=== PATIENT | male | born 1940 | race Caucasian/White ===

== ENCOUNTER → 2019-11-28 | Day surgery (SDC) | payer MEDICARE ==
[2019-11-26 14:34] LABS: BASOPHILS % 0.4 % (0.0-1.0); EOSINOPHILS % 0.6 % (0.0-6.0); HEMATOCRIT 43.7 % (38.2-49.6); HEMOGLOBIN 14.2 g/dL (14.0-18.0); LYMPHOCYTES # (AUTO) 0.9 (1.0-3.2); LYMPHOCYTES % 17.7 % (18.0-39.1); MEAN CORPUSCULAR HEMOGLOBIN 28.8 pg (28-32); MEAN CORPUSCULAR HGB CONC 32.5 g/dL (31-35); MEAN CORPUSCULAR VOLUME 88.6 fL (81-99); MONOCYTES # (AUTO) 0.2 (0.2-0.8); MONOCYTES % 3.5 % (4.4-11.3); NEUTROPHILS # (AUTO) 3.9 (2.1-6.9); NEUTROPHILS % 77.4 % (38.7-80.0); PLATELET COUNT 160 x10e3/uL (140-360); RED BLOOD COUNT 4.93 x10e6/uL (4.3-5.7); RED CELL DISTRIBUTION WIDTH 12.7 % (11.7-14.4)
[2019-11-26 14:44] LABS: INR 1.13
[2019-11-26 14:45] LABS: PARTIAL THROMBOPLASTIN TIME 33.5 seconds (23.8-35.5)
[2019-11-26 14:51] LABS: ALBUMIN 4.1 g/dL (3.5-5.0); ANION GAP 10.9 mmol/L (8-16); CALCIUM 9.3 mg/dL (8.4-10.2); CREATININE, SERUM 1.39 mg/dL (0.72-1.25); POTASSIUM 4.9 mmol/L (3.5-5.1)
--- NOTE | 2019-11-26 14:58 | Diagnostic Imaging Report ---
EXAMINATION: CHEST 2 VIEWS INDICATION: Pre-operative COMPARISON: Chest radiograph 10/28/2019 FINDINGS: LINES/TUBES:Right chest pacer. LUNGS:The lungs are hyperinflated. No focal consolidation or pulmonary edema. PLEURA:No pleural effusion or pneumothorax. MEDIASTINUM:The cardiomediastinal silhouette appears normal in size and shape. Status post coronary artery stenting. BONES/SOFT TISSUES:No acute osseous injury. ABDOMEN:No free air under the diaphragm. IMPRESSION: Hyperinflated lungs. No focal pneumonia or pulmonary edema. Signed by: Vijay Philippe MD on 11/26/2019 2:55 PM
[2019-11-28] VITALS (10 sets, daily range): BP systolic 115–152; BP diastolic 63–78
[~2019-11-28] VITALS: Ht 188 cm; Wt 86.2 kg
[~2019-11-28] MED LIST: ALPRAZOLAM0.5 MG PO; AMBIEN10 MG PO; ASPIRIN PO; BENADRYL25 M1 PO; CARVEDILOL3.125 MG PO; CARVEDILOL6.25 MG PO; ELIQUIS2.5 MG PO; FENTANYL CITRATE/PF 100MCG/2 ML INJ ONE; FLOMAX0.4 MG PO; GABAPENTIN100 MG PO; HEPARIN SOD (PORCINE) 1000 UNIT/ML 30ML ONE; HEPARIN SOD/SOD CHLORIDE 2,000 ML ONE; IBUPROFEN200 MG PO; IOPAMIDOL 370 MG/ML 200 ML INFUS..BTL INJ ONE; KETOCONAZOLE120 ML; KETOCONAZOLE120 ML TOP; LIDOCAINE HCL 2% LOCAL 20 ML VIAL ONE; LOTREL 5-10 MG1 EACH PO; MIDAZOLAM HCL 2 MG/2 ML VIAL ONE; MIRALAX17 GM PO; MOBIC7.5 MG/5 M PO; NITROGLYCERIN/D5W 200 MCG/ML 250 ML ONE; NORCO 7.5-3251 EACH PO; PANTOPRAZOLE SO40 MG PO; PLAVIX75 MG PO; POLYETHYLENE GL17 GM PO; PREDNISONE5 MG PO; SODIUM CHLORIDE 0.9% 1000ML 1,000 ML ONE; VERAPAMIL HCL 2.5 MG/ML 2 ML VIAL ONE
--- OUTSIDE RECORDS SUMMARY | 2019-11-28 06:36 | XMS REPORT ---
Author Author [facility] Address Unknown Phone Unavailable Care Team Providers Care Cop Breaker Name Role Phone MERA RICO Unavailable Unavailable WHITNEY SAMUELS Unavailable Unavailable Payers Payer Name Policy Type Policy Number Effective Date Expiration Date Problems This patient has no known problems. Allergies, Adverse Reactions, Alerts Allergy Name Allergy Type Status Severity Reaction(s) Onset Date Inactive Date Treating Clinician Comments latex DA Active [place] 2019-09-30 00:00:00 Iodinated Contrast- Oral and IV Dye DA Active 2019-09-04 00:00:00 Penicillins DA Active SV 2019-09-04 00:00:00 adhesive tape DA Active [place] 2019-09-04 00:00:00 minocycline DA Active MO 2019-09-04 00:00:00 adhesive tape DA Active [place] 2019-09-02 00:00:00 Iodinated Contrast- Oral and IV Dye DA Active 2014-02-25 00:00:00 Penicillins DA Active 2014-02-25 00:00:00 Medications This patient has no known medications. Results Test Description Test Time Test Comments Text Results Atomic Results Result Comments CHEST 2 VIEWS 2019-11-26 14:54:00 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 LUNGS:The lungs are hyperinflated. No focal consolidation or pulmonary edema. PLEURA:No pleural effusion or pneumothorax. MEDIASTINUM:The cardiomediastinal silhouette appears normal in size and shape. Status post coronary artery stenting. BONES/SOFT TISSUES:No acute osseous injury. ABDOMEN:No free air under the diaphragm. IMPRESSION: Hyperinflated lungs. No focal pneumonia or pulmonary edema. Signed by: Leora Escalona MD on 11/26/2019 2:55 PM Dictated By: LEORA ESCALONA MD 54 Transcribed By: PHOEBE on 11/26/191454 COPY TO: MERA RICO MD CHEST SINGLE (PORTABLE) 2019-10-28 00:32:00 [place] [address] Patient Name: WHITNEY GUY MR #: [id number] : 1940 Age/Sex: 79/M Req #: [id number] Adm Physician: Ordered by: WHITNEY SAMUELS DO Report #: [id number] Location: ER Room/Bed: Procedure: [id number] DX/CHEST SINGLE (PORTABLE) Exam Date: Exam Time: REPORT STATUS: Signed EXAMINATION: CHEST SINGLE (PORTABLE) INDICATION: Carmen st tightness COMPARISON: Chest x-ray 03/09/2015 FINDINGS: TUBES and LINES: Right chest wall cardiac device with leads in the right atrium, right ventricle and coronary sinus.. LUNGS: Right lung well inflated. Left basilar atelectasis. There is mild prominence of the central pulmonary vasculature, consistent with pulmonary venous congestion. No consolidations. PLEURA: No pleural effusion or pneumothorax. HEART AND MEDIASTINUM: Cardiac size is mildly enlarged. BONES AND SOFT TISSUES: No acute osseous lesion. Soft tissues are unremarkable. UPPER ABDOMEN: No free air under the diaphragm. IMPRESSION: Mild cardiomegaly and pulmonary vascular congestion. Signed by: Jeffrey Jung DO on 10/28/2019 12:33 AM Dictated By: JEFFREY JUNG DO Transcribed By: PHOEBE on 10/28/1932 COPY TO: WHITNEY SAMUELS DO CBC W/AUTO DIFF 2019-10-03 08:16:00 WHITE BLOOD CELL (test code=WBC) 9.27 x10 3/uL 4.5-11.0 RED BLOOD CELL (test code=RBC) 4.50 x10 6/uL 4.00-5.60 HEMOGLOBIN (test code=HGB) 13.6 g/dL 12.5-16.9 HEMATOCRIT (test code=HCT) 41.2 % 37.5-50.7 MEAN CELL VOLUME (test code=MCV) 91.6 fL 81.0-99.0 MEAN CELL HGB (test code=MCH) 30.2 pg 27.0-33.0 MEAN CELL HGB CONCETRATION (test code=MCHC) 33.0 g/dL 33.0-37.0 RED CELL DISTRIBUTION WIDTH CV (test code=RDW) 13.4 % 11.5-14.5 RED CELL DISTRIBUTION WIDTH SD (test code=RDW-SD) 44.3 fL 37.0-54.0 PLATELET COUNT (test code=PLT) 160 x10 3/uL 150-400 MEAN PLATELET VOLUME (test code=MPV) 11.9 fL 7.0-9.0 NEUTROPHIL % (test code=NT%) 76.3 % 56.0-77.0 IMMATURE GRANULOCYTE % (test code=IG%) 0.2 % 0.0-2.0 LYMPHOCYTE % (test code=LY%) 13.2 % 14.0-32.0 MONOCYTE % (test code=MO%) 10.1 % 4.8-9.0 EOSINOPHIL % (test code=EO%) 0.1 % 0.3-3.7 BASOPHIL % (test code=BA%) 0.1 % 0.0-2.0 NUCLEATED RBC % (test code=NRBC%) 0.0 % 0-0 NEUTROPHIL # (test code=NT#) 7.07 x10 3/uL 2.0-7.6 IMMATURE GRANULOCYTE # (test code=IG#) 0.02 x10 3/uL 0.00-0.03 LYMPHOCYTE # (test code=LY#) 1.22 x10 3/uL 1.0-3.8 MONOCYTE # (test code=MO#) 0.94 x10 3/uL 0.1-0.8 EOSINOPHIL # (test code=EO#) 0.01 x10 3/uL 0.0-0.2 BASOPHIL # (test code=BA#) 0.01 x10 3/uL 0.0-0.2 NUCLEATED RBC # (test code=NRBC#) 0.00 x10 3/uL 0.0-0.1 MANUAL DIFF REQUIRED (test code=MDIFF) NO COMPREHENSIVE METABOLIC [id number] 07:53:00* Test Item Value Reference Range Comments SODIUM (test code=NA) 137 mEq/L 134-147 POTASSIUM (test code=K) 4.2 mEq/L 3.4-5.0 CHLORIDE (test code=CL) 106 mEq/L 100-108 CARBON DIOXIDE (test code=CO2) 25 mEq/L 21-33 ANION GAP (test code=GAP) 10 0-20 GLUCOSE (test code=GLU) 95 mg/dL 70-110 BLOOD UREA NITROGEN (test code=BUN) 20 mg/dL 7-18 GLOMERULAR FILTRATION RATE (test code=GFR) 49.0 70-80 Units of measure=ml/min/1.73 m2 CREATININE (test code=CREAT) 1.4 mg/dL 0.6-1.3 TOTAL PROTEIN (test code=PROT) 5.9 g/dL 6.4-8.2 ALBUMIN (test code=ALB) 3.40 g/dL 3.4-5.0 CALCIUM (test code=CA) 8.6 mg/dL 8.0-10.5 BILIRUBIN TOTAL (test code=BILT) 1.8 MG/DL <1.5 SGOT/AST (test code=AST) 12 IUnit/L 15-37 SGPT/ALT (test code=ALT) 20 IUnit/L 15-65 ALKALINE PHOSPHATASE TOTAL (test code=ALKP) 47 IUnit/L 20-125 - XR CHEST 1 [id number] 07:43:00 FAX: Yong Leal MD [phone] [place]: St: ADM FAX: Glenn Colón DO [phone] FAX: Elle Perdue MD [phone] FAX: Malena Carpenter NP [phone] Name: BILL GUY JORDYN BEN [facility] : 1940 Age/S: 79/M [address] [place] [address] Unit #: [id number] Loc: [address] [address] Phys: Malena Carpenter NP Acct: [id number] Dis Date: Status: ADM IN PHONE #: [phone] Exam D ate: 10/03/2019 0623 FAX #: [phone] Reason: P ost PM/ICD EXAMS: CPT CODE: [id number] XR CHEST 1 V 06896 PROCEDURE: CHEST SINGLE VIEW I NDICATION: Post PM/ICD COMPARISON: Multiple priors, most recent 10/02/2019 FINDINGS: TUBES AND LINES: Pacemaker leads appear stable. Multiple EKG leads overlie the chest. CHEST: Bandli ke opacities in the right lower lung zone and left base. The hemidiaphragm s remain visible. No pneumothorax or gross pleural effusion. The cardiomed iastinal silhouette is stable. The pulmonary vasculature is normal. No acu te skeletal abnormality. IMPRESSION: 1. Bibasilar sub segmental atelectasis. SL: [id number] at 0743 Reported and signed by: Ham Hong M.D. CC: Yong Muir MD; Glenn Zeng DO; Elle Hines MD; Malena Carpenter NP Technologist: RT Mallory(Meredith) Trnscrd Date/Time/By: 10/03/2019 (07) : By: Luke Orig Print D/T: S: 10/03/2019 (0710) PAGE 1 Signed Report - XR CHEST 1 [id number] 14:15:00 FAX: Glenn Colón DO [phone] [place]: St: ADM FAX: Elle Perdue MD [phone] FAX: Malena Carpenter NP [phone] Name: BROOKSANGIE ZAIRA [facility] : 1940 Age/S: 79/M [address] [place] [address] Unit #: [id number] Loc: [place] [address] Phys: Malena Carpenter NP Acct: [id number] Dis Date: Status: ADM IN ONE #: [phone] Exam Date: 10/02/2019 1413 FAX #: [phone] Reason: Post PM/ICD EXAMS: CPT CODE: [id number] XR CHEST 1 V 16804 1 VIEW CXR. PORTABLE EXAM 1:33 PM HISTORY: Post pacemaker device placem ent. COMPARISON: 09/02/2019 chest x-ray. The lungs ar e clear with normal pulmonary vasculature. Cardiomediastinal silhouette n ormal. No pleural abnormality. Bony thorax intact. Pacemaker device mirza ears well-positioned. IMPRESSION: Normal exam. Pacemaker appears well-positioned. No pneumothorax. END OF IMPRESSION SL: [id number] at 1415 Reported and signed by: Huseyin Patel C: Glenn Zeng DO; Elle Hines MD; Malena Carpenter NP Technologist: RT Bradford(R) Trnscrd Date/Time/By: 10/02/2019 (1415) : By: Grayson Orig Print D/T: S: 10/02/2019 (1411) PAGE 1 Signed Report BASIC METABOLIC [id number] 12:16:00* Test Item Value Reference Range Comments SODIUM (test code=NA) 139 mEq/L 134-147 POTASSIUM (test code=K) 4.5 mEq/L 3.4-5.0 CHLORIDE (test code=CL) 107 mEq/L 100-108 CARBON DIOXIDE (test code=CO2) 29 mEq/L 21-33 ANION GAP (test code=GAP) 8 0-20 GLUCOSE (test code=GLU) 87 mg/dL 70-110 BLOOD UREA NITROGEN (test code=BUN) 14 mg/dL 7-18 GLOMERULAR FILTRATION RATE (test code=GFR) 49.0 70-80 Units of measure=ml/min/1.73 m2 CREATININE (test code=CREAT) 1.4 mg/dL 0.6-1.3 CALCIUM (test code=CA) 8.7 mg/dL 8.0-10.5 BASIC METABOLIC [id number] 12:09:00* Test Item Value Reference Range Comments SODIUM (test code=NA) 139 mEq/L 134-147 POTASSIUM (test code=K) 4.5 mEq/L 3.4-5.0 CHLORIDE (test code=CL) 107 mEq/L 100-108 CARBON DIOXIDE (test code=CO2) 29 mEq/L 21-33 ANION GAP (test code=GAP) 8 0-20 GLUCOSE (test code=GLU) 87 mg/dL 70-110 BLOOD UREA NITROGEN (test code=BUN) 14 mg/dL 7-18 GLOMERULAR FILTRATION RATE (test code=GFR) 70-80 CREATININE (test code=CREAT) mg/dL 0.6-1.3 CALCIUM (test code=CA) 8.7 mg/dL 8.0-10.5 PROTHROMBIN [id number] 12:07:00* Test Item Value Reference Range Comments PROTHROMBIN TIME PATIENT (test code=PTP) 14.0 SECONDS 9.3-12.9 INTERNATIONAL NORMAL RATIO (test code=INR) 1.3 0.8-1.2 TARGET INR BY INDICATION Indication INR1. Prophylaxis of venous thrombosis 2.0 - 3.0 (orthopedic surgery), Prophylaxis of venous thrombosis (other than high-risk surgery), Treatment of Deep Vein Thrombosis/Pulmonary Embolism, Prevention of systemic embolism - Tissue heart valves, Acute Myocardial Infarction (to prevent systemic embolism), Valvular heart disease, Atrial Fibrillation, Bileaflet mechanical valve in aortic position.2. Mechanical prosthetic valves (high risk), 2.5 - 3.5 Presence of Lupus Anticoagulant or Antiphospholipid Antibodies, Prevention of systemic embolism - Acute Myocardial Infarction (to prevent recurrent infarct). CBC W/AUTO [id number] 12:00:00* Test Item Value Reference Range Comments WHITE BLOOD CELL (test code=WBC) 4.66 x10 3/uL 4.5-11.0 RED BLOOD CELL (test code=RBC) 4.86 x10 6/uL 4.00-5.60 HEMOGLOBIN (test code=HGB) 14.5 g/dL 12.5-16.9 HEMATOCRIT (test code=HCT) 44.1 % 37.5-50.7 MEAN CELL VOLUME (test code=MCV) 90.7 fL 81.0-99.0 MEAN CELL HGB (test code=MCH) 29.8 pg 27.0-33.0 MEAN CELL HGB CONCETRATION (test code=MCHC) 32.9 g/dL 33.0-37.0 RED CELL DISTRIBUTION WIDTH CV (test code=RDW) 13.0 % 11.5-14.5 RED CELL DISTRIBUTION WIDTH SD (test code=RDW-SD) 42.6 fL 37.0-54.0 PLATELET COUNT (test code=PLT) 165 x10 3/uL 150-400 MEAN PLATELET VOLUME (test code=MPV) 11.1 fL 7.0-9.0 NEUTROPHIL % (test code=NT%) 57.8 % 56.0-77.0 IMMATURE GRANULOCYTE % (test code=IG%) 0.2 % 0.0-2.0 LYMPHOCYTE % (test code=LY%) 30.5 % 14.0-32.0 MONOCYTE % (test code=MO%) 9.0 % 4.8-9.0 EOSINOPHIL % (test code=EO%) 1.9 % 0.3-3.7 BASOPHIL % (test code=BA%) 0.6 % 0.0-2.0 NUCLEATED RBC % (test code=NRBC%) 0.0 % 0-0 NEUTROPHIL # (test code=NT#) 2.69 x10 3/uL 2.0-7.6 IMMATURE GRANULOCYTE # (test code=IG#) 0.01 x10 3/uL 0.00-0.03 LYMPHOCYTE # (test code=LY#) 1.42 x10 3/uL 1.0-3.8 MONOCYTE # (test code=MO#) 0.42 x10 3/uL 0.1-0.8 EOSINOPHIL # (test code=EO#) 0.09 x10 3/uL 0.0-0.2 BASOPHIL # (test code=BA#) 0.03 x10 3/uL 0.0-0.2 NUCLEATED RBC # (test code=NRBC#) 0.00 x10 3/uL 0.0-0.1 MANUAL DIFF REQUIRED (test code=MDIFF) NO - XR CHEST 2 [id number] 11:51:00 FAX: Glenn Colón DO [phone] [place]: St: PRE FAX: Elle Perdue MD [phone] Name: ANGIE GUY [facility] : 1940 Age/S: 79/M [address] [place] [address] Unit #: [id number] Loc: [place] [address] Phys: Elle Hines MD Acct: [id number] Dis Date: Status: PRE SDC PHONE #: [phone] Exam Date: 09/02/2019 1138 FAX #: [phone] Reason: PRE-OP PACEMAKER EXAMS: CPT CODE: [id number] XR CHEST 2 V 47249 2 view chest x-ray performed September 02, 2019. COMPARISON: February 19, 2014. CLINICAL HISTORY: PRE-OP PACEMAKER. DISCUSSION: 2 views/ films of the chest are submitted. The left-sided pacemaker is present. Surgical hardware is seen over the lower C-spine Lungs are clear bilaterally. Cardiomediastinal silhouette is normal. Osseous structures are within normal limits. IMPRESSION: No acute cardiopulmonary findings at 1151 Reported and signed by: Dena Gallo M.D. CC: Glenn Zeng DO; Elle Hines MD Technologist: RT Renee(Meredith) Trnscrd Date/Time/By: 09/02/2019 (9128) : By: [email or web address] Orig Print D/T: S: 09/02/2019 (1991) PAGE 1 Signed Report BASIC METABOLIC [id number] 11:31:00* Test Item Value Reference Range Comments SODIUM (test code=NA) 140 mEq/L 134-147 POTASSIUM (test code=K) 4.7 mEq/L 3.4-5.0 CHLORIDE (test code=CL) 107 mEq/L 100-108 CARBON DIOXIDE (test code=CO2) 30 mEq/L 21-33 ANION GAP (test code=GAP) 8 0-20 GLUCOSE (test code=GLU) 96 mg/dL 70-110 BLOOD UREA NITROGEN (test code=BUN) 13 mg/dL 7-18 GLOMERULAR FILTRATION RATE (test code=GFR) 42.0 70-80 Units of measure=ml/min/1.73 m2 CREATININE (test code=CREAT) 1.6 mg/dL 0.6-1.3 CALCIUM (test code=CA) 9.2 mg/dL 8.0-10.5 BASIC METABOLIC [id number] 11:28:00* Test Item Value Reference Range Comments SODIUM (test code=NA) 140 mEq/L 134-147 POTASSIUM (test code=K) 4.7 mEq/L 3.4-5.0 CHLORIDE (test code=CL) 107 mEq/L 100-108 CARBON DIOXIDE (test code=CO2) 30 mEq/L 21-33 ANION GAP (test code=GAP) 8 0-20 GLUCOSE (test code=GLU) 96 mg/dL 70-110 BLOOD UREA NITROGEN (test code=BUN) 13 mg/dL 7-18 GLOMERULAR FILTRATION RATE (test code=GFR) 70-80 CREATININE (test code=CREAT) mg/dL 0.6-1.3 CALCIUM (test code=CA) 9.2 mg/dL 8.0-10.5 CBC W/AUTO [id number] 11:26:00* Test Item Value Reference Range Comments WHITE BLOOD CELL (test code=WBC) 5.52 x10 3/uL 4.5-11.0 RED BLOOD CELL (test code=RBC) 4.84 x10 6/uL 4.00-5.60 HEMOGLOBIN (test code=HGB) 14.6 g/dL 12.5-16.9 HEMATOCRIT (test code=HCT) 44.4 % 37.5-50.7 MEAN CELL VOLUME (test code=MCV) 91.7 fL 81.0-99.0 MEAN CELL HGB (test code=MCH) 30.2 pg 27.0-33.0 MEAN CELL HGB CONCETRATION (test code=MCHC) 32.9 g/dL 33.0-37.0 RED CELL DISTRIBUTION WIDTH CV (test code=RDW) 12.7 % 11.5-14.5 RED CELL DISTRIBUTION WIDTH SD (test code=RDW-SD) 42.9 fL 37.0-54.0 PLATELET COUNT (test code=PLT) 180 x10 3/uL 150-400 MEAN PLATELET VOLUME (test code=MPV) 11.0 fL 7.0-9.0 NEUTROPHIL % (test code=NT%) 62.1 % 56.0-77.0 IMMATURE GRANULOCYTE % (test code=IG%) 0.2 % 0.0-2.0 LYMPHOCYTE % (test code=LY%) 27.4 % 14.0-32.0 MONOCYTE % (test code=MO%) 8.0 % 4.8-9.0 EOSINOPHIL % (test code=EO%) 1.6 % 0.3-3.7 BASOPHIL % (test code=BA%) 0.7 % 0.0-2.0 NUCLEATED RBC % (test code=NRBC%) 0.0 % 0-0 NEUTROPHIL # (test code=NT#) 3.43 x10 3/uL 2.0-7.6 IMMATURE GRANULOCYTE # (test code=IG#) 0.01 x10 3/uL 0.00-0.03 LYMPHOCYTE # (test code=LY#) 1.51 x10 3/uL 1.0-3.8 MONOCYTE # (test code=MO#) 0.44 x10 3/uL 0.1-0.8 EOSINOPHIL # (test code=EO#) 0.09 x10 3/uL 0.0-0.2 BASOPHIL # (test code=BA#) 0.04 x10 3/uL 0.0-0.2 NUCLEATED RBC # (test code=NRBC#) 0.00 x10 3/uL 0.0-0.1 MANUAL DIFF REQUIRED (test code=MDIFF) NO PROTHROMBIN [id number] 11:22:00* Test Item Value Reference Range Comments PROTHROMBIN TIME PATIENT (test code=PTP) 14.8 SECONDS 9.3-12.9 INTERNATIONAL NORMAL RATIO (test code=INR) 1.4 0.8-1.2 TARGET INR BY INDICATION Indication INR1. Prophylaxis of venous thrombosis 2.0 - 3.0 (orthopedic surgery), Prophylaxis of venous thrombosis (other than high-risk surgery), Treatment of Deep Vein Thrombosis/Pulmonary Embolism, Prevention of systemic embolism - Tissue heart valves, Acute Myocardial Infarction (to prevent systemic embolism), Valvular heart disease, Atrial Fibrillation, Bileaflet mechanical valve in aortic position.2. Mechanical prosthetic valves (high risk), 2.5 - 3.5 Presence of Lupus Anticoagulant or Antiphospholipid Antibodies, Prevention of systemic embolism - Acute Myocardial Infarction (to prevent recurrent infarct). - XR C-SPINE 4-5 [id number] 12:34:00 FAX: Glenn Colón DO [phone] [place]: O St: REG Name: ANGIE PATRICIA [facility] : [birth year] Age/S: 78/M [address] [facility] Unit #: [id number] Loc: [place] [address] Phys: Glenn Zeng DO Acct: [id number] Dis Date: Status: REG CLI PHONE #: [phone] Exam Date: 12/09/2018 1218 FAX #: [phone] Reason: M48.02 EXAMS: CPT CODE: [id number] XR C-SPINE 4-5 V 97949 HISTORY: M 48.02 COM PARISON: None available. Cervical spine series, 5 views: Cervical fusion from C4 through C5 with metallic plate and bone graft in good anatomic alignment on the lateral view. No prevertebral soft tis orin swelling. Vertebral body heights are maintained. Disc spaces otherwi se are preserved. Foramina are patent. Uncovertebral joints are narrowed . Lung apices are clear. Lateral masses appear well marginated however m ostly obscured due to overlapping teeth. IMPRESSION: No acute fracture or dislocation. Vertebral body heights are janes ntained. Patent foramina. Cervical fusion in good anatomic alignment f rom C4 through C5. Electronically Signed by Huseyin Oseguera on 08/2019 at 1234 Reported and signed by: Gela Humphreys CC: Glenn Zeng Technologist: RT Brent(Meredith) Trnscrd Date/Time/By: 12/09/2018 (4997) : By: [email or web address] Orig Print D/T: S: (6562) PAGE 1 Signed Rep ort
--- NOTE | 2019-11-28 14:35 | Operative Report ---
DATE OF PROCEDURE: SURGEON: Phu Boucher MD PROCEDURE: Left heart catheterization. INDICATION: Coronary artery disease. COMPLICATIONS: None. ANESTHESIA: Versed, fentanyl, and lidocaine. TECHNIQUE: The patient's right wrist was draped and prepped in the usual fashion. The area was anesthetized with lidocaine. Standard Seldinger technique was used to place a 6-Tamazight sheath into the right radial artery without difficulty. A Dublin catheter was used to selectively engage the right coronary artery. A JL3.5 catheter was used to selectively engage the left coronary artery. A pigtail catheter was used to perform the left ventriculogram. There were no complications. Results are as follows: 1. There is a patent stent in the left main trunk. 2. There is a large left anterior descending artery, which gave rise to a medium-sized diagonal branch. 3. There are patent stents in the midportion of the left anterior descending artery with some mild nonobstructive disease. 4. There was a small AV circumflex artery, which gave rise to a medium-sized bifurcating obtuse marginal branch. There was minimal disease in the circumflex system. 5. There was a large dominant right coronary artery, which had patent stents in the mid vessel. 6. There was normal left ventricular size and function with an ejection fraction of 55%. CONCLUSION: The patient has patent stents in the left main trunk, left anterior descending artery and right coronary artery. The patient has only mild nonobstructive coronary artery disease. Phu Boucher MD DSH/MODL /[id number] cc: Glenn Zeng DO
== END | disposition home or self-care (01) ==
LOC: CATH LAB 06:29
PROVIDERS: ATTEND Internal Medicine Cardiovascular Disease
DX: I25.10 Atherosclerotic heart disease of native coronary artery without angina pectoris (principal); Z91.040 Latex allergy status; Z88.0 Allergy status to penicillin; Z91.048 Other nonmedicinal substance allergy status; Z95.0 Presence of cardiac pacemaker; Z95.5 Presence of coronary angioplasty implant and graft; Z01.810 Encounter for preprocedural cardiovascular examination; Z01.812 Encounter for preprocedural laboratory examination; Z01.811 Encounter for preprocedural respiratory examination
CPT/HCPCS: 36415; 71046; 80053; 85025; 85610; 85730; 93005; 93458; 99152; 99153; C1769; C1887; J1644; J2001; J2250; J3010; J7030; Q9967

== ENCOUNTER 2021-02-22 20:51 | Emergency (ER) | payer MEDICARE ==
[~2021-02-22] VITALS: Ht 188 cm; Wt 86.2 kg
[~2021-02-22 20:51] MED LIST changes: -ACETAMINOPHEN 1000 MG/100 ML 100 ML IV ONE; -BUPIVACAINE HCL 0.5% INJ 30 ML VIAL INJ ONE; -DEXAMETHASONE SOD PHOS INJ 4 MG/ML VIAL ONE; -FENTANYL CITRATE/PF 100MCG/2 ML INJ ONE; -GLYCOPYRROLATE INJ 0.2 MG/ML VIAL ONE; -HYDROCODONE/APAP 5MG-325MG TAB ONE; -LEVOFLOXACIN 500MG/D5W 100ML 100 ML IV ONE; -LIDOCAINE HCL 2% LOCAL INJ 5 ML SDV VIAL INJ ONE; -NEOSTIGMINE 1 MG/ML 10ML VIAL ONE; -ONDANSETRON HCL INJ 2MG/ML 2ML 2 MG/ML VIAL ONE; -POVIDONE IODINE 0.05% 0.05 % ML PO ONE; -PROPOFOL IV EMULSION 10 MG/ML 20 ML VIAL ONE; -ROCURONIUM BROMIDE 10 MG/ML 5ML VIAL IV ONE; -SEVOFLURANE INHAL SOLN 250 ML PEN BTL ONE; -VANCOMYCIN HCL 1 GM VIAL ONE
[2021-02-22] MEDS ORDERED: LIDOCAINE JELLY 2% 10ML URO-JET TOP ONE (22:45)
[2021-02-22] MEDS ORDERED: LIDOCAINE JELLY 2% 10ML URO-JET ONE (22:51)
[2021-02-22 22:54] LABS: BASOPHILS % 0.2 % (0.0-1.0); HEMATOCRIT 50.6 % (38.2-49.6); HEMOGLOBIN 17.3 g/dL (14.0-18.0); LYMPHOCYTES # (AUTO) 0.9 (1.0-3.2); LYMPHOCYTES % 7.7 % (18.0-39.1); MEAN CORPUSCULAR HEMOGLOBIN 30.8 pg (28-32); MEAN CORPUSCULAR HGB CONC 34.2 g/dL (31-35); MEAN CORPUSCULAR VOLUME 90.2 fL (81-99); MONOCYTES # (AUTO) 0.3 (0.2-0.8); NEUTROPHILS % 88.7 % (38.7-80.0); PLATELET COUNT 169 x10e3/uL (140-360); RED BLOOD COUNT 5.61 x10e6/uL (4.3-5.7); RED CELL DISTRIBUTION WIDTH 13.1 % (11.7-14.4)
[2021-02-22 23:05] LABS: ANION GAP 16.8 mmol/L (8-16); CALCIUM 9.6 mg/dL (8.4-10.2); CREATININE, SERUM 1.51 mg/dL (0.72-1.25); POTASSIUM 4.8 mmol/L (3.5-5.1)
[2021-02-22 23:34] LABS: CLARITY,URINE CLEAR (CLEAR); COLOR,URINE YELLOW (YELLOW); KETONES,URINE NEGATIVE (NEGATIVE); LEUKOCYTE ESTERASE ,URINE NEGATIVE (NEGATIVE); NITRITE,URINE NEGATIVE (NEGATIVE); PROTEIN,URINE DIPSTICK 1+ (NEGATIVE); URINE UROBILINOGEN 0.2 mg/dL (0.2 - 1)
[2021-02-22 23:51] LABS: BACTERIA,URINE FEW /HPF; EPITHELIAL CELLS,URINE FEW /LPF; MUCUS,URINE MANY (RARE); RBC,URINE >50 /HPF (0-5)
== END 2021-02-23 01:15 | disposition home or self-care (01) ==
LOC: ER 21:33
DX: R33.9 Retention of urine, unspecified (principal); N40.1 Benign prostatic hyperplasia with lower urinary tract symptoms; I10 Essential (primary) hypertension; I48.91 Unspecified atrial fibrillation; F32.9 Major depressive disorder, single episode, unspecified; Z95.5 Presence of coronary angioplasty implant and graft; Z95.810 Presence of automatic (implantable) cardiac defibrillator
CPT/HCPCS: 36415; 51700; 80048; 81001; 85025; 99283

== ENCOUNTER → 2021-02-22 | Day surgery (SDC) | payer MEDICARE ==
[2021-02-17 12:12] LABS: BASOPHILS % 0.6 % (0.0-1.0); EOSINOPHILS # (AUTO) 0.1 (0.0-0.4); EOSINOPHILS % 2.3 % (0.0-6.0); HEMATOCRIT 45.9 % (38.2-49.6); HEMOGLOBIN 15.3 g/dL (14.0-18.0); LYMPHOCYTES # (AUTO) 1.4 (1.0-3.2); LYMPHOCYTES % 28.3 % (18.0-39.1); MEAN CORPUSCULAR HEMOGLOBIN 30.7 pg (28-32); MEAN CORPUSCULAR HGB CONC 33.3 g/dL (31-35); MONOCYTES # (AUTO) 0.3 (0.2-0.8); MONOCYTES % 6.4 % (4.4-11.3); PLATELET COUNT 118 x10e3/uL (140-360); RED BLOOD COUNT 4.99 x10e6/uL (4.3-5.7); RED CELL DISTRIBUTION WIDTH 13.2 % (11.7-14.4)
[2021-02-17 12:32] LABS: ANION GAP 12.3 mmol/L (8-16); CREATININE, SERUM 1.48 mg/dL (0.72-1.25); POTASSIUM 4.3 mmol/L (3.5-5.1)
[~2021-02-22] MED LIST changes: +ACETAMINOPHEN 1000 MG/100 ML 100 ML IV ONE; +BUPIVACAINE HCL 0.5% INJ 30 ML VIAL INJ ONE; +DEXAMETHASONE SOD PHOS INJ 4 MG/ML VIAL ONE; +GLYCOPYRROLATE INJ 0.2 MG/ML VIAL ONE; -HEPARIN SOD (PORCINE) 1000 UNIT/ML 30ML ONE; -HEPARIN SOD/SOD CHLORIDE 2,000 ML ONE; +HYDROCODON-ACE1 EA11 PO; +HYDROCODONE/APAP 5MG-325MG TAB ONE; -IOPAMIDOL 370 MG/ML 200 ML INFUS..BTL INJ ONE; +LEVOFLOXACIN 500MG/D5W 100ML 100 ML IV ONE; -LIDOCAINE HCL 2% LOCAL 20 ML VIAL ONE; +LIDOCAINE HCL 2% LOCAL INJ 5 ML SDV VIAL INJ ONE; -MIDAZOLAM HCL 2 MG/2 ML VIAL ONE; +NEOSTIGMINE 1 MG/ML 10ML VIAL ONE; -NITROGLYCERIN/D5W 200 MCG/ML 250 ML ONE; +ONDANSETRON HCL INJ 2MG/ML 2ML 2 MG/ML VIAL ONE; +POVIDONE IODINE 0.05% 0.05 % ML PO ONE; +PROPOFOL IV EMULSION 10 MG/ML 20 ML VIAL ONE; +ROCURONIUM BROMIDE 10 MG/ML 5ML VIAL IV ONE; +SEVOFLURANE INHAL SOLN 250 ML PEN BTL ONE; -SODIUM CHLORIDE 0.9% 1000ML 1,000 ML ONE; +VANCOMYCIN HCL 1 GM VIAL ONE; -VERAPAMIL HCL 2.5 MG/ML 2 ML VIAL ONE
[2021-02-22 13:45] VITALS: BP 150/86
== END | disposition home or self-care (01) ==
LOC: OR 10:17
PROVIDERS: ATTEND Surgery
DX: K43.9 Ventral hernia without obstruction or gangrene (principal); I10 Essential (primary) hypertension; K21.9 Gastro-esophageal reflux disease without esophagitis; I48.91 Unspecified atrial fibrillation; I25.10 Atherosclerotic heart disease of native coronary artery without angina pectoris; E78.5 Hyperlipidemia, unspecified; F41.9 Anxiety disorder, unspecified; Z01.810 Encounter for preprocedural cardiovascular examination; Z01.812 Encounter for preprocedural laboratory examination; Z01.818 Encounter for other preprocedural examination; Z20.822 Contact with and (suspected) exposure to COVID-19; Z79.02 Long term (current) use of antithrombotics/antiplatelets; Z95.0 Presence of cardiac pacemaker; Z95.5 Presence of coronary angioplasty implant and graft
CPT/HCPCS: 36415; 49590; 71046; 80048; 85025; 93005; C1781; J0131; J1100; J1956; J2001; J2405; J2704; J2710; J3010; U0002; J3370

== ENCOUNTER 2021-02-26 06:30 | Emergency (ER) | payer MEDICARE ==
[~2021-02-26] VITALS: Ht 188 cm; Wt 86.2 kg
[2021-02-26] MEDS ORDERED: LIDOCAINE JELLY 2% 10ML URO-JET ONE (06:58)
[2021-02-26] MEDS ORDERED: LIDOCAINE JELLY 2% 10ML URO-JET TOP ONE (07:00)
[2021-02-26 07:29] LABS: CLARITY,URINE CLEAR (CLEAR); COLOR,URINE YELLOW (YELLOW)
[2021-02-26 07:30] LABS: KETONES,URINE NEGATIVE (NEGATIVE); LEUKOCYTE ESTERASE ,URINE NEGATIVE (NEGATIVE); NITRITE,URINE NEGATIVE (NEGATIVE); PROTEIN,URINE DIPSTICK NEGATIVE (NEGATIVE); URINE UROBILINOGEN 0.2 mg/dL (0.2 - 1)
[2021-02-26 07:43] LABS: BACTERIA,URINE RARE /HPF; EPITHELIAL CELLS,URINE FEW /LPF; WBC,URINE (MAN) 21-50 /HPF (0-5)
== END 2021-02-26 07:57 | disposition home or self-care (01) ==
LOC: ER 06:35
DX: R33.9 Retention of urine, unspecified (principal); N40.1 Benign prostatic hyperplasia with lower urinary tract symptoms; I10 Essential (primary) hypertension; I48.91 Unspecified atrial fibrillation; I25.2 Old myocardial infarction; Z95.5 Presence of coronary angioplasty implant and graft; Z95.810 Presence of automatic (implantable) cardiac defibrillator
CPT/HCPCS: 51700; 81001; 87086; 99283

== ENCOUNTER 2021-03-10 18:56 | Inpatient (IN) | payer MEDICARE ==
[~2021-03-10] VITALS: Ht 188 cm; Wt 85.3 kg
[2021-03-10 20:03] LABS: BASOPHILS % 0.1 % (0.0-1.0); EOSINOPHILS # (AUTO) 0.1 (0.0-0.4); EOSINOPHILS % 0.4 % (0.0-6.0); HEMATOCRIT 41.6 % (38.2-49.6); HEMOGLOBIN 15.9 g/dL (14.0-18.0); LYMPHOCYTES # (AUTO) 0.8 (1.0-3.2); LYMPHOCYTES % 6.2 % (18.0-39.1); MEAN CORPUSCULAR HEMOGLOBIN 31.5 pg (28-32); MEAN CORPUSCULAR HGB CONC 38.2 g/dL (31-35); MEAN CORPUSCULAR VOLUME 82.4 fL (81-99); MONOCYTES # (AUTO) 0.9 (0.2-0.8); MONOCYTES % 6.7 % (4.4-11.3); NEUTROPHILS # (AUTO) 11.4 (2.1-6.9); PLATELET COUNT 236 x10e3/uL (140-360); RED BLOOD COUNT 5.05 x10e6/uL (4.3-5.7); RED CELL DISTRIBUTION WIDTH 12.2 % (11.7-14.4)
[2021-03-10 20:18] LABS: INR 1.47; PROTHROMBIN TIME 18.5 seconds (11.9-14.5)
[2021-03-10 20:19] LABS: PARTIAL THROMBOPLASTIN TIME 40.7 seconds (23.8-35.5)
[2021-03-10 20:21] LABS: ALBUMIN 3.1 g/dL (3.5-5.0); ALBUMIN/GLOBULIN RATIO 1.6 (0.8-2.0); CALCIUM 8.6 mg/dL (8.4-10.2); CREATININE, SERUM 9.36 mg/dL (0.72-1.25)
[2021-03-10 20:23] LABS: POTASSIUM 5.4 mmol/L (3.5-5.1)
[2021-03-10 20:27] LABS: CREATINE KINASE MB 21.3 ng/mL (0-5.0)
[2021-03-10 20:28] LABS: B-TYPE NATRIURETIC PEPTIDE2 107.5 pg/mL (0-100)
[2021-03-10] MEDS ORDERED: SODIUM BICARBONATE 8.4% 50 ML VIAL IV STA (20:47)
[2021-03-10] MEDS ORDERED: PIPER-TAZ 3.375 GM 50 ML IV STA (20:47)
[2021-03-10] MEDS ORDERED: CALCIUM GLUCONATE 10% INJ 4.65 MEQ in SODIUM CHLORIDE 0.9% 50ML 50 ML IV ONE (21:00)
[2021-03-10] MEDS ORDERED: MEROPENEM 1GRAM 1 GM in SODIUM CHLORIDE 0.9% 100 ML 100 ML IV STA (21:07)
[2021-03-10] MEDS ORDERED: LIDOCAINE JELLY 2% 10ML URO-JET ONE (21:14)
[2021-03-10 21:15] LABS: ANION GAP 20.4 mmol/L (8-16)
[2021-03-10] MEDS: SODIUM CHLORIDE 0.9% 1000ML 1,000 ML IV SCH (21:40)
[2021-03-10] MEDS ORDERED: SODIUM BICARBONATE 8.4% SYRING 50 ML ONE (21:45)
[2021-03-10] MEDS ORDERED: MEROPENEM 1 GM VIAL ONE (23:22)
[2021-03-10] MEDS ORDERED: SODIUM CHLORIDE 0.9% 100 ML ONE (23:23)
[2021-03-11] VITALS (25 sets, daily range): BP systolic 79–159; BP diastolic 61–132
[2021-03-11 00:01] LABS: CLARITY,URINE SL CLOUDY (CLEAR); COLOR,URINE AMBER (YELLOW); KETONES,URINE NEGATIVE (NEGATIVE); LEUKOCYTE ESTERASE ,URINE NEGATIVE (NEGATIVE); NITRITE,URINE NEGATIVE (NEGATIVE); PROTEIN,URINE DIPSTICK 2+ (NEGATIVE); URINE UROBILINOGEN 0.2 mg/dL (0.2 - 1)
[2021-03-11 00:09] LABS: AMORPHOUS SEDIMENT,URINE FEW (FEW); BACTERIA,URINE FEW /HPF; EPITHELIAL CELLS,URINE RARE /LPF; RBC,URINE >50 /HPF (0-5)
[2021-03-11 00:36] LABS: CALCIUM 8.1 mg/dL (8.4-10.2); CREATININE, SERUM 7.72 mg/dL (0.72-1.25)
[2021-03-11] MEDS: SODIUM CHLORIDE 0.9% 1000ML 1,000 ML IV SCH ×3 (02:06→19:47)
[2021-03-11 04:46] LABS: BASOPHILS % 0.1 % (0.0-1.0); EOSINOPHILS # (AUTO) 0.1 (0.0-0.4); EOSINOPHILS % 0.7 % (0.0-6.0); HEMATOCRIT 39.2 % (38.2-49.6); HEMOGLOBIN 14.4 g/dL (14.0-18.0); LYMPHOCYTES # (AUTO) 1.1 (1.0-3.2); LYMPHOCYTES % 11.1 % (18.0-39.1); MEAN CORPUSCULAR HEMOGLOBIN 30.8 pg (28-32); MEAN CORPUSCULAR HGB CONC 36.7 g/dL (31-35); MEAN CORPUSCULAR VOLUME 83.9 fL (81-99); MONOCYTES # (AUTO) 0.9 (0.2-0.8); MONOCYTES % 9.2 % (4.4-11.3); NEUTROPHILS # (AUTO) 7.8 (2.1-6.9); NEUTROPHILS % 78.6 % (38.7-80.0); PLATELET COUNT 165 x10e3/uL (140-360); RED BLOOD COUNT 4.67 x10e6/uL (4.3-5.7); RED CELL DISTRIBUTION WIDTH 12.2 % (11.7-14.4)
[2021-03-11 05:07] LABS: ALBUMIN 2.9 g/dL (3.5-5.0); ALBUMIN/GLOBULIN RATIO 1.7 (0.8-2.0); ANION GAP 17.6 mmol/L (8-16); CALCIUM 8.1 mg/dL (8.4-10.2); CREATININE, SERUM 5.82 mg/dL (0.72-1.25); MAGNESIUM 2.1 MG/DL (1.3-2.1); PHOSPHORUS 4.1 MG/DL (2.3-4.7); POTASSIUM 4.6 mmol/L (3.5-5.1)
[2021-03-11 05:35] LABS: CREATINE KINASE MB 16.5 ng/mL (0-5.0)
[2021-03-11] MEDS: ALPRAZOLAM 0.25 MG TAB PO PRN ×2 (08:52→19:47)
[2021-03-11] MEDS: CARVEDILOL 3.125 MG TAB PO SCH ×2 (08:52→16:09)
[2021-03-11] MEDS: POLYETHYLENE GLYCOL 3350 17 GM PACK PO SCH (08:53)
[2021-03-11] MEDS: PANTOPRAZOLE SOD 40 MG TABEC PO SCH (08:53)
[2021-03-11 14:31] LABS: CREATINE KINASE MB 8.8 ng/mL (0-5.0)
[2021-03-11] MEDS ORDERED: APIXAB 2.5 MG TABLET PO SCH (17:00)
[2021-03-11] MEDS ORDERED: TAMSULOSIN HCL 0.4 MG CAP PO SCH (21:00)
[2021-03-11] MEDS: ZOLPIDEM TARTRATE 5 MG TAB PO PRN (21:45)
[2021-03-12] VITALS (11 sets, daily range): BP systolic 96–137; BP diastolic 52–84
[2021-03-12 06:36] LABS: BASOPHILS % 0.3 % (0.0-1.0); EOSINOPHILS # (AUTO) 0.2 (0.0-0.4); HEMATOCRIT 37.2 % (38.2-49.6); HEMOGLOBIN 13.7 g/dL (14.0-18.0); LYMPHOCYTES # (AUTO) 1.3 (1.0-3.2); LYMPHOCYTES % 21.1 % (18.0-39.1); MEAN CORPUSCULAR HEMOGLOBIN 31.4 pg (28-32); MEAN CORPUSCULAR HGB CONC 36.8 g/dL (31-35); MEAN CORPUSCULAR VOLUME 85.1 fL (81-99); MONOCYTES # (AUTO) 0.7 (0.2-0.8); MONOCYTES % 12.1 % (4.4-11.3); NEUTROPHILS # (AUTO) 3.7 (2.1-6.9); NEUTROPHILS % 62.2 % (38.7-80.0); PLATELET COUNT 189 x10e3/uL (140-360); RED BLOOD COUNT 4.37 x10e6/uL (4.3-5.7); RED CELL DISTRIBUTION WIDTH 12.6 % (11.7-14.4)
[2021-03-12 07:06] LABS: ALBUMIN 2.8 g/dL (3.5-5.0); ALBUMIN/GLOBULIN RATIO 1.6 (0.8-2.0); ANION GAP 12.6 mmol/L (8-16); CREATININE, SERUM 1.53 mg/dL (0.72-1.25); MAGNESIUM 2.1 MG/DL (1.3-2.1); PHOSPHORUS 2.5 MG/DL (2.3-4.7); POTASSIUM 4.6 mmol/L (3.5-5.1)
[2021-03-12] MEDS: PANTOPRAZOLE SOD 40 MG TABEC PO SCH (07:32)
[2021-03-12] MEDS: CARVEDILOL 3.125 MG TAB PO SCH ×2 (08:52→17:01)
[2021-03-12] MEDS: APIXAB 2.5 MG TABLET PO SCH ×2 (08:53→17:01)
[2021-03-12] MEDS: POLYETHYLENE GLYCOL 3350 17 GM PACK PO SCH (08:53)
[2021-03-12] MEDS: SODIUM CHLORIDE 0.9% 1000ML 1,000 ML IV SCH (13:15)
[2021-03-12] MEDS ORDERED: ACETAMINOPHEN 325 MG TAB PO PRN (17:45)
[2021-03-12] MEDS ORDERED: ACETAMINOPHEN 325 MG TAB ONE (17:54)
[2021-03-12] MEDS: ALPRAZOLAM 0.25 MG TAB PO PRN (20:11)
[2021-03-12] MEDS ORDERED: TAMSULOSIN HCL 0.4 MG CAP PO SCH (21:00)
[2021-03-12] MEDS: ZOLPIDEM TARTRATE 5 MG TAB PO PRN (23:34)
[2021-03-13] VITALS: BP 140/93
[2021-03-13] MEDS: SODIUM CHLORIDE 0.9% 1000ML 1,000 ML IV SCH ×3 (00:12→10:37)
[2021-03-13 04:00] VITALS: BP 132/80
[2021-03-13 06:42] LABS: BASOPHILS % 0.4 % (0.0-1.0); EOSINOPHILS # (AUTO) 0.2 (0.0-0.4); EOSINOPHILS % 4.7 % (0.0-6.0); HEMATOCRIT 37.7 % (38.2-49.6); HEMOGLOBIN 13.4 g/dL (14.0-18.0); LYMPHOCYTES # (AUTO) 1.2 (1.0-3.2); LYMPHOCYTES % 25.9 % (18.0-39.1); MEAN CORPUSCULAR HEMOGLOBIN 30.5 pg (28-32); MEAN CORPUSCULAR HGB CONC 35.5 g/dL (31-35); MEAN CORPUSCULAR VOLUME 85.7 fL (81-99); MONOCYTES # (AUTO) 0.5 (0.2-0.8); MONOCYTES % 10.3 % (4.4-11.3); NEUTROPHILS # (AUTO) 2.6 (2.1-6.9); NEUTROPHILS % 58.5 % (38.7-80.0); PLATELET COUNT 196 x10e3/uL (140-360); RED CELL DISTRIBUTION WIDTH 12.7 % (11.7-14.4)
[2021-03-13 07:36] LABS: ALANINE AMINOTRANSFERASE 31 IU/L (0-55); ALBUMIN 2.6 g/dL (3.5-5.0); ALBUMIN/GLOBULIN RATIO 1.6 (0.8-2.0); ALKALINE PHOSPHATASE 91 IU/L (40-150); ANION GAP 10.4 mmol/L (8-16); BLOOD UREA NITROGEN 17 mg/dL (7-26); BUN/CREATININE RATIO 23 (6-25); CALCIUM 7.7 mg/dL (8.4-10.2); CARBON DIOXIDE 20 mmol/L (22-29); CHLORIDE 102 mmol/L (98-107); CREATININE, SERUM 0.74 mg/dL (0.72-1.25); EST GLOMERULAR FILTRATION RATE > 60 ML/MIN (60-); GLUCOSE 73 mg/dL (74-118); POTASSIUM 4.4 mmol/L (3.5-5.1); SODIUM 128 mmol/L (136-145)
[2021-03-13] MEDS: POLYETHYLENE GLYCOL 3350 17 GM PACK PO SCH ×2 (07:45→07:54)
[2021-03-13] MEDS: PANTOPRAZOLE SOD 40 MG TABEC PO SCH (07:45)
[2021-03-13] MEDS: ALPRAZOLAM 0.25 MG TAB PO PRN (07:45)
[2021-03-13] MEDS: APIXAB 2.5 MG TABLET PO SCH (07:45)
[2021-03-13 08:00] VITALS: BP 124/77
[2021-03-13] MEDS: CARVEDILOL 3.125 MG TAB PO SCH (09:00)
[2021-03-13 09:15] VITALS: BP 124/77
[2021-03-13 12:09] VITALS: BP 119/74
[2021-03-13 12:12] LABS: BLOOD UREA NITROGEN 19 mg/dL (7-26); GLUCOSE 67 mg/dL (74-118); OSMOLALITY,SERUM 259 mOsm/kg (278-305); SODIUM 129 mmol/L (136-145)
== END 2021-03-13 14:25 | disposition home or self-care (01) | DRG 683 ==
LOC: ER 20:45 → ERHOLD 22:01 → ICU 23:53 → MED/SURG 03-12 18:56
PROVIDERS: ADMIT Internal Medicine; ATTEND Internal Medicine
DX: N17.9 Acute kidney failure, unspecified (principal); N13.8 Other obstructive and reflux uropathy; E87.2 Acidosis; E87.1 Hypo-osmolality and hyponatremia; D68.9 Coagulation defect, unspecified; N40.1 Benign prostatic hyperplasia with lower urinary tract symptoms; N13.6 Pyonephrosis; N13.9 Obstructive and reflux uropathy, unspecified; I48.91 Unspecified atrial fibrillation; Z79.01 Long term (current) use of anticoagulants; I25.10 Atherosclerotic heart disease of native coronary artery without angina pectoris; Z20.822 Contact with and (suspected) exposure to COVID-19; R33.8 Other retention of urine; R82.81 Pyuria; R31.0 Gross hematuria; E83.51 Hypocalcemia
CPT/HCPCS: 36415; 51700; 71045; 74176; 76770; 80048; 80053; 81001; 82550; 82553; 82947; 83605; 83735; 83880; 83930; 83935; 84100; 84295; 84300; 84443; 84484; 84520; 85025; 85610; 85730; 87040; 87086; 93005; 99284; J0610; J2185; J7030; J7050; U0002

== ENCOUNTER → 2021-04-05 | Day surgery (SDC) | payer MEDICARE ==
[2021-04-04 13:25] LABS: BASOPHILS % 0.9 % (0.0-1.0); EOSINOPHILS # (AUTO) 0.1 (0.0-0.4); EOSINOPHILS % 2.8 % (0.0-6.0); HEMATOCRIT 39.2 % (38.2-49.6); LYMPHOCYTES # (AUTO) 1.1 (1.0-3.2); MEAN CORPUSCULAR HEMOGLOBIN 31.2 pg (28-32); MEAN CORPUSCULAR HGB CONC 33.2 g/dL (31-35); MONOCYTES # (AUTO) 0.3 (0.2-0.8); MONOCYTES % 7.8 % (4.4-11.3); NEUTROPHILS # (AUTO) 2.7 (2.1-6.9); NEUTROPHILS % 62.3 % (38.7-80.0); PLATELET COUNT 185 x10e3/uL (140-360); RED BLOOD COUNT 4.17 x10e6/uL (4.3-5.7); RED CELL DISTRIBUTION WIDTH 13.6 % (11.7-14.4)
[2021-04-04 13:34] LABS: INR 1.16; PROTHROMBIN TIME 15.5 seconds (11.9-14.5)
[2021-04-04 13:35] LABS: PARTIAL THROMBOPLASTIN TIME 32.4 seconds (23.8-35.5)
[2021-04-04 13:39] LABS: ANION GAP 11.1 mmol/L (8-16); BLOOD UREA NITROGEN 8 mg/dL (7-26); BUN/CREATININE RATIO 8 (6-25); CALCIUM 8.1 mg/dL (8.4-10.2); CARBON DIOXIDE 26 mmol/L (22-29); CHLORIDE 98 mmol/L (98-107); CREATININE, SERUM 0.98 mg/dL (0.72-1.25); EST GLOMERULAR FILTRATION RATE > 60 ML/MIN (60-); GLUCOSE 117 mg/dL (74-118); POTASSIUM 4.1 mmol/L (3.5-5.1); SODIUM 131 mmol/L (136-145)
[~2021-04-05] MED LIST changes: +ACETAMINOPHEN325 M1 PO; +BUPIVACAINE HCL 0.5% INJ 30 ML VIAL INJ ONE; +CIPROFLOXACIN250 MG PO; +FENTANYL CITRATE/PF 100MCG/2 ML INJ ONE; +FINASTERIDE5 MG PO; +FUROSEMIDE40 MG PO; +LEVOFLOXACIN 500MG/D5W 100ML 100 ML IV ONE
[2021-04-05 14:30] VITALS: BP 149/86
== END | disposition home or self-care (01) ==
LOC: OR 10:27
PROVIDERS: ATTEND Surgery
DX: K40.90 Unilateral inguinal hernia, without obstruction or gangrene, not specified as recurrent (principal); I48.91 Unspecified atrial fibrillation; I25.10 Atherosclerotic heart disease of native coronary artery without angina pectoris; N40.0 Benign prostatic hyperplasia without lower urinary tract symptoms; I10 Essential (primary) hypertension; E78.5 Hyperlipidemia, unspecified; Z88.0 Allergy status to penicillin; Z91.041 Radiographic dye allergy status; Z91.040 Latex allergy status; Z01.810 Encounter for preprocedural cardiovascular examination; Z01.812 Encounter for preprocedural laboratory examination; Z79.02 Long term (current) use of antithrombotics/antiplatelets; Z95.5 Presence of coronary angioplasty implant and graft; Z95.0 Presence of cardiac pacemaker
CPT/HCPCS: 36415; 49505; 80048; 85025; 85610; 85730; 93005; C1781; J1956; J3010

== ENCOUNTER 2021-05-04 08:39 | Inpatient (IN) | payer MEDICARE ==
[2021-04-29 15:38] LABS: BASOPHILS % 0.7 % (0.0-1.0); EOSINOPHILS # (AUTO) 0.2 (0.0-0.4); EOSINOPHILS % 3.5 % (0.0-6.0); HEMATOCRIT 39.5 % (38.2-49.6); HEMOGLOBIN 13.1 g/dL (14.0-18.0); LYMPHOCYTES # (AUTO) 1.3 (1.0-3.2); LYMPHOCYTES % 22.5 % (18.0-39.1); MEAN CORPUSCULAR HEMOGLOBIN 31.2 pg (28-32); MEAN CORPUSCULAR HGB CONC 33.2 g/dL (31-35); MONOCYTES # (AUTO) 0.5 (0.2-0.8); MONOCYTES % 8.5 % (4.4-11.3); NEUTROPHILS # (AUTO) 3.7 (2.1-6.9); NEUTROPHILS % 64.6 % (38.7-80.0); PLATELET COUNT 151 x10e3/uL (140-360); RED CELL DISTRIBUTION WIDTH 13.6 % (11.7-14.4)
[2021-04-29 15:53] LABS: ANION GAP 12.5 mmol/L (8-16); CALCIUM 8.8 mg/dL (8.4-10.2); CREATININE, SERUM 1.02 mg/dL (0.72-1.25); POTASSIUM 4.5 mmol/L (3.5-5.1)
[~2021-05-04] VITALS: Ht 188 cm; Wt 76.2 kg
[~2021-05-04 08:39] MED LIST changes: -BUPIVACAINE HCL 0.5% INJ 30 ML VIAL INJ ONE; -FENTANYL CITRATE/PF 100MCG/2 ML INJ ONE; -LEVOFLOXACIN 500MG/D5W 100ML 100 ML IV ONE
[2021-05-04] MEDS ORDERED: LEVOFLOXACIN 500MG/D5W 100ML 100 ML IV ONE (08:48)
[2021-05-04] MEDS ORDERED: SODIUM CHLORIDE 0.9% 1000ML 1,000 ML ONE (08:49)
[2021-05-04] MEDS ORDERED: GENTAMICIN 80MG/NS 100 ML 200 ML IV ONE (08:49)
[2021-05-04] MEDS ORDERED: IOPAMIDOL 300MG/ML 50ML INFUS..BTL IV ONE (10:12)
[2021-05-04] MEDS ORDERED: B&O 60MG R/S 60 MG SUPP PR ONE (10:12)
[2021-05-04] MEDS ORDERED: B&O 60MG R/S 60 MG SUPP PR PRN (11:15)
[2021-05-04] MEDS ORDERED: ONDANSETRON HCL INJ 2MG/ML 2ML 2 MG/ML VIAL IV PRN (11:15)
[2021-05-04] MEDS ORDERED: DIPHENHYDRAMINE HCL 25 MG CAP PO PRN (11:15)
[2021-05-04] MEDS ORDERED: SEVOFLURANE INHAL SOLN 250 ML PEN BTL ONE (12:59)
[2021-05-04] MEDS ORDERED: LIDOCAINE HCL 2% LOCAL INJ 5 ML SDV VIAL INJ ONE (12:59)
[2021-05-04] MEDS ORDERED: PROPOFOL IV EMULSION 10 MG/ML 20 ML VIAL ONE (12:59)
[2021-05-04] MEDS ORDERED: POVIDONE IODINE 0.05% 0.05 % ML PO ONE (12:59)
[2021-05-04] MEDS ORDERED: ONDANSETRON HCL INJ 2MG/ML 2ML 2 MG/ML VIAL ONE ×2 (12:59→14:15)
[2021-05-04] MEDS ORDERED: DEXAMETHASONE SOD PHOS INJ 4 MG/ML VIAL ONE (12:59)
[2021-05-04] MEDS ORDERED: MIDAZOLAM HCL 2 MG/2 ML VIAL ONE (13:31)
[2021-05-04] MEDS ORDERED: FENTANYL CITRATE/PF 100MCG/2 ML INJ ONE ×2 (13:31→13:34)
[2021-05-04 14:01] LABS: BASOPHILS % 0.4 % (0.0-1.0); EOSINOPHILS # (AUTO) 0.1 (0.0-0.4); HEMATOCRIT 44.6 % (38.2-49.6); HEMOGLOBIN 15.1 g/dL (14.0-18.0); LYMPHOCYTES # (AUTO) 1.2 (1.0-3.2); LYMPHOCYTES % 14.6 % (18.0-39.1); MEAN CORPUSCULAR HEMOGLOBIN 31.7 pg (28-32); MEAN CORPUSCULAR HGB CONC 33.9 g/dL (31-35); MEAN CORPUSCULAR VOLUME 93.5 fL (81-99); MONOCYTES # (AUTO) 0.2 (0.2-0.8); MONOCYTES % 2.1 % (4.4-11.3); NEUTROPHILS # (AUTO) 6.7 (2.1-6.9); NEUTROPHILS % 81.5 % (38.7-80.0); PLATELET COUNT 142 x10e3/uL (140-360); RED BLOOD COUNT 4.77 x10e6/uL (4.3-5.7); RED CELL DISTRIBUTION WIDTH 13.3 % (11.7-14.4)
[2021-05-04] MEDS ORDERED: METOCLOPRAMIDE HCL 10 MG/2ML VIAL ONE (14:13)
[2021-05-04 14:16] LABS: ANION GAP 13.9 mmol/L (8-16); CALCIUM 8.7 mg/dL (8.4-10.2); CREATININE, SERUM 0.96 mg/dL (0.72-1.25); POTASSIUM 4.9 mmol/L (3.5-5.1)
[2021-05-04] MEDS: D5.45%NS/KCL 20MEQ 1,000 ML IV SCH ×2 (16:08→21:15)
[2021-05-04 16:43] VITALS: BP 146/92
[2021-05-04] MEDS ORDERED: CARVEDILOL 3.125 MG TAB PO SCH (17:00)
[2021-05-04] MEDS: DOCUSATE SODIUM 100 MG CAP PO SCH (17:00)
[2021-05-04] MEDS: PHENAZOPYRIDINE HCL 100 MG TAB PO PRN (17:07)
[2021-05-04] MEDS ORDERED: PANTOPRAZOLE SOD 40 MG TABEC PO PRN (18:00)
[2021-05-04] MEDS: CARVEDILOL 3.125 MG TAB PO SCH (18:21)
[2021-05-04] MEDS ORDERED: PEPCID20 MG PO (19:19)
[2021-05-04 19:31] VITALS: BP 146/92
[2021-05-04] MEDS: ACETAMINOPHEN/CODEINE 300MG - 30MG TAB PO PRN (19:40)
[2021-05-04 20:25] VITALS: BP 159/92
[2021-05-04] MEDS ORDERED: POLYETHYLENE GLYCOL 3350 17 GM PACK PO SCH (21:00)
[2021-05-04] MEDS ORDERED: ZOLPIDEM TARTRATE 10 MG TAB PO PRN (21:00)
[2021-05-04] MEDS ORDERED: ATORVASTATIN 20 MG TAB PO SCH (21:00)
[2021-05-04 23:50] VITALS: BP 135/82
[2021-05-05] MEDS ORDERED: DIPHENHYDRAMINE HCL 25 MG CAP PO PRN (01:15)
[2021-05-05] MEDS ORDERED: PREDNISONE 5 MG TAB PO PRN (01:15)
[2021-05-05] MEDS ORDERED: ALPRAZOLAM 0.5 MG TAB PO PRN (01:15)
[2021-05-05] MEDS ORDERED: ACETAMINOPHEN 325 MG TAB PO PRN (01:15)
[2021-05-05] MEDS ORDERED: FUROSEMIDE 40 MG TAB PO PRN (01:15)
[2021-05-05 05:05] VITALS: BP 122/74
[2021-05-05 05:51] LABS: BASOPHILS % 0.2 % (0.0-1.0); EOSINOPHILS % 0.1 % (0.0-6.0); HEMATOCRIT 42.1 % (38.2-49.6); HEMOGLOBIN 14.6 g/dL (14.0-18.0); LYMPHOCYTES # (AUTO) 1.1 (1.0-3.2); LYMPHOCYTES % 11.5 % (18.0-39.1); MEAN CORPUSCULAR HEMOGLOBIN 31.8 pg (28-32); MEAN CORPUSCULAR HGB CONC 34.7 g/dL (31-35); MEAN CORPUSCULAR VOLUME 91.7 fL (81-99); MONOCYTES # (AUTO) 0.7 (0.2-0.8); MONOCYTES % 6.9 % (4.4-11.3); NEUTROPHILS # (AUTO) 7.9 (2.1-6.9); PLATELET COUNT 170 x10e3/uL (140-360); RED BLOOD COUNT 4.59 x10e6/uL (4.3-5.7); RED CELL DISTRIBUTION WIDTH 13.3 % (11.7-14.4)
[2021-05-05] MEDS: ACETAMINOPHEN/CODEINE 300MG - 30MG TAB PO PRN (05:52)
[2021-05-05] MEDS ORDERED: LEVOFLOXACIN 250MG/D5W 50ML 50 ML IV SCH ×2 (06:00→09:00)
[2021-05-05] MEDS: D5.45%NS/KCL 20MEQ 1,000 ML IV SCH (06:05)
[2021-05-05 06:16] LABS: ANION GAP 11.8 mmol/L (8-16); CALCIUM 8.8 mg/dL (8.4-10.2); CREATININE, SERUM 0.95 mg/dL (0.72-1.25); POTASSIUM 4.8 mmol/L (3.5-5.1)
[2021-05-05 07:40] VITALS: BP 113/84
[2021-05-05 08:06] VITALS: BP 113/84
[2021-05-05] MEDS: CARVEDILOL 3.125 MG TAB PO SCH (08:27)
[2021-05-05] MEDS: DOCUSATE SODIUM 100 MG CAP PO SCH (08:27)
[2021-05-05] MEDS ORDERED: TAMSULOSIN HCL 0.4 MG CAP PO SCH (09:00)
[2021-05-05] MEDS ORDERED: FINASTERIDE 5 MG TAB PO SCH (09:00)
[2021-05-05] MEDS ORDERED: LEVOFLOXACIN250 MG PO (10:49)
[2021-05-05] MEDS ORDERED: TYLENOL # 31 EA PO (10:50)
[2021-05-05 11:39] VITALS: BP 120/79
[2021-05-05] MEDS ORDERED: FAMOTIDINE 20 MG TAB PO SCH (12:00)
[2021-05-05] MEDS: PHENAZOPYRIDINE HCL 100 MG TAB PO PRN (13:02)
[2021-05-09] MEDS ORDERED: APIXAB 2.5 MG TABLET PO SCH (09:00)
== END 2021-05-05 14:04 | disposition home or self-care (01) | DRG 713 ==
LOC: OR 08:39 → PACU V 11:07 → MED/SURG 15:13
PROVIDERS: ADMIT Internal Medicine; ATTEND Internal Medicine
PROC: BT141ZZ Fluoroscopy of Kidneys, Ureters and Bladder using Low Osmolar Contrast (ICD-10-PCS; principal; 2021-05-04 10:00)
PROC: 0V508ZZ Destruction of Prostate, Via Natural or Artificial Opening Endoscopic (ICD-10-PCS; 2021-05-04 10:00)
DX: N40.1 Benign prostatic hyperplasia with lower urinary tract symptoms (principal); N13.8 Other obstructive and reflux uropathy; N13.30 Unspecified hydronephrosis; N17.9 Acute kidney failure, unspecified; N39.0 Urinary tract infection, site not specified; I48.20 Chronic atrial fibrillation, unspecified; R33.8 Other retention of urine; R31.0 Gross hematuria; D41.01 Neoplasm of uncertain behavior of right kidney; N28.1 Cyst of kidney, acquired; I25.10 Atherosclerotic heart disease of native coronary artery without angina pectoris; Z95.5 Presence of coronary angioplasty implant and graft; Z95.810 Presence of automatic (implantable) cardiac defibrillator; Z87.891 Personal history of nicotine dependence; Z88.0 Allergy status to penicillin; Z91.041 Radiographic dye allergy status; E78.5 Hyperlipidemia, unspecified; I12.9 Hypertensive chronic kidney disease with stage 1 through stage 4 chronic kidney disease, or unspecified chronic kidney disease; N18.9 Chronic kidney disease, unspecified; Z82.49 Family history of ischemic heart disease and other diseases of the circulatory system
CPT/HCPCS: 36415; 74420; 80048; 83735; 85025; 93005; C1758; J1100; J1580; J1956; J2001; J2250; J2405; J2765; J3010; J7030

== ENCOUNTER 2021-05-06 23:21 | Emergency (ER) | payer MEDICARE ==
[~2021-05-06] VITALS: Ht 188 cm; Wt 76.2 kg
[~2021-05-06 23:21] MED LIST changes: +LEVOFLOXACIN250 MG PO; +PEPCID20 MG PO; +TYLENOL # 31 EA PO
[2021-05-07] MEDS ORDERED: OXYBUTYNIN CHLORIDE 5 MG TAB PO ONE
[2021-05-07] MEDS ORDERED: OXYBUTYNIN CHLORIDE 5 MG TAB ONE
== END 2021-05-07 00:49 | disposition home or self-care (01) ==
LOC: ER 23:30
DX: Z46.6 Encounter for fitting and adjustment of urinary device (principal); N32.89 Other specified disorders of bladder; I50.9 Heart failure, unspecified; I48.91 Unspecified atrial fibrillation; F41.9 Anxiety disorder, unspecified; Z95.810 Presence of automatic (implantable) cardiac defibrillator
CPT/HCPCS: 51703; 99284

== ENCOUNTER 2024-09-29 06:10 | Day surgery (SDC) | payer MEDICARE ==
[2024-09-26 13:09] LABS: BASOPHILS % 0.7 % (0.0-1.0); EOSINOPHILS # (AUTO) 0.1 (0.0-0.4); EOSINOPHILS % 1.7 % (0.0-6.0); LYMPHOCYTES # (AUTO) 1.2 (1.0-3.2); LYMPHOCYTES % 28.7 % (18.0-39.1); MEAN CORPUSCULAR HEMOGLOBIN 30.7 pg (28-32); MEAN CORPUSCULAR VOLUME 99.3 fL (81-99); MONOCYTES # (AUTO) 0.4 (0.2-0.8); MONOCYTES % 10.4 % (4.4-11.3); NEUTROPHILS # (AUTO) 2.5 (2.1-6.9); NEUTROPHILS % 58.3 % (38.7-80.0); PLATELET COUNT 116 x10e3/uL (140-360); RED BLOOD COUNT 4.23 x10e6/uL (4.3-5.7); RED CELL DISTRIBUTION WIDTH 12.2 % (11.7-14.4); WHITE BLOOD COUNT 4.22 x10e3/uL (4.8-10.8)
[2024-09-26 13:30] LABS: INR 1.34; PARTIAL THROMBOPLASTIN TIME 35.4 seconds (23.8-35.5); PROTHROMBIN TIME 17.3 seconds (11.9-14.5)
[2024-09-26 13:38] LABS: ANION GAP 12.5 mmol/L (8-16); CALCIUM 9.6 mg/dL (8.4-10.2); CHOL/HDL RATIO 3.4 (3.9-4.7); CREATININE, SERUM 1.36 mg/dL (0.72-1.25); POTASSIUM 4.5 mmol/L (3.5-5.1)
[2024-09-29] VITALS (14 sets, daily range): BP systolic 108–142; BP diastolic 59–89; PULSE 95–107; RESP 12–19; TEMP 97.4–97.9; O2SAT 16–100
[~2024-09-29 06:10] MED LIST changes: +AFRIN15 ML INH; +ALPRAZOLAM0.5 M1 PO; +DICYCLOMINE HCL20 MG PO; +ENTRESTO 24 MG1 EACH; +FLUCONAZOLE; +MYRBETRIQ50 MG; +PREDNISONE1 MG PO; +ZOLPIDEM TARTRAT5 MG PO
[2024-09-29] MEDS ORDERED: LIDOCAINE HCL 2% LOCAL 20 ML VIAL ONE (06:56)
[2024-09-29] MEDS ORDERED: SODIUM CHLORIDE 0.9% 1000ML 1,000 ML ONE (06:56)
[2024-09-29] MEDS ORDERED: IOPAMIDOL 370 MG/ML 100 ML INFUS..BTL INJ ONE ×2 (06:56→07:35)
[2024-09-29] MEDS ORDERED: HEPARIN SOD/SOD CHLORIDE 2,000 ML ONE (06:56)
[2024-09-29] MEDS ORDERED: VERAPAMIL HCL 2.5 MG/ML 2 ML VIAL ONE (06:56)
[2024-09-29] MEDS ORDERED: NITROGLYCERIN/D5W 200 MCG/ML 250 ML ONE (06:56)
[2024-09-29] MEDS ORDERED: HEPARIN SOD (PORCINE) 1000 UNIT/ML 30ML ONE (06:56)
[2024-09-29] MEDS ORDERED: FENTANYL CITRATE/PF 100MCG/2 ML INJ ONE (07:14)
[2024-09-29] MEDS ORDERED: MIDAZOLAM HCL 2 MG/2 ML VIAL ONE ×2 (07:14→07:52)
== END 2024-09-29 11:45 | disposition home or self-care (01) ==
LOC: MERGE 06:10 → CATH LAB 06:10
PROVIDERS: ATTEND Internal Medicine Cardiovascular Disease
DX: I25.110 Atherosclerotic heart disease of native coronary artery with unstable angina pectoris (principal); I11.0 Hypertensive heart disease with heart failure; I50.9 Heart failure, unspecified; R94.39 Abnormal result of other cardiovascular function study; I48.91 Unspecified atrial fibrillation; Z95.5 Presence of coronary angioplasty implant and graft; Z91.041 Radiographic dye allergy status; Z88.0 Allergy status to penicillin; Z91.048 Other nonmedicinal substance allergy status; Z01.810 Encounter for preprocedural cardiovascular examination; Z01.812 Encounter for preprocedural laboratory examination; Z01.818 Encounter for other preprocedural examination; Z79.02 Long term (current) use of antithrombotics/antiplatelets; Z79.899 Other long term (current) drug therapy; Z86.2 Personal history of diseases of the blood and blood-forming organs and certain disorders involving the immune mechanism; Z82.49 Family history of ischemic heart disease and other diseases of the circulatory system; Z82.3 Family history of stroke
CPT/HCPCS: 36415; 71046; 76937; 80048; 80061; 85025; 85347; 85610; 85730; 93005; 93458; C1725 ×2; C1769 ×2; C1887; J1644; J2003; J2250; J3010; J7030; Q9967; 99152; 99153